=== PATIENT | male | born 1965 | race Caucasian/White ===

== ENCOUNTER 2020-01-20 22:59 | Emergency (ER) | payer OTHER ==
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
[2020-01-20] MEDS ORDERED: ACETAMINOPHEN 325 MG TABLET (FP) PO ONE (23:10)
[2020-01-20] MEDS ORDERED: ACETAMINOPHEN 325 MG TABLET (FP) ONE (23:12)
[2020-01-20 23:13] VITALS: TEMP 97.9; BMI 27.1
[2020-01-21 00:51] VITALS: BP 130/82; PULSE 80
== END 2020-01-21 00:52 | disposition home or self-care (01) ==
LOC: JER 22:59
DX: S61.214A Laceration without foreign body of right ring finger without damage to nail, initial encounter (principal); Y99.0 Civilian activity done for income or pay; X02.8XXA Other exposure to controlled fire in building or structure, initial encounter; Y93.89 Activity, other specified; Y92.89 Other specified places as the place of occurrence of the external cause
CPT/HCPCS: 73130-TC-RT-FY; 99283-25